=== PATIENT | male | born 1955 | race Caucasian/White ===

== ENCOUNTER 2016-11-14 07:11 | Day surgery (SDC) | payer OTHER, MEDICARE ==
[~2016-11-14] VITALS: Ht 172.7 cm; Wt 89.8 kg
--- NOTE | ~2016-11-14 | S ---
[facility] [place] [address] SURGICAL PATH RPT PROCEDURE Name: MARY GALICIA Room #: [place] [facility] [place].#: [id number] Admission: 11/14/16 Date of : 55 Discharge: 11/14/16 Report #: [id number] Path Case #: [id number] PATHOLOGY REPORT COLLECTION DATE: 11/14/2016 RECEIVED DATE: 11/15/2016 SUBMITTING PHYS: Dr. Daquan Pena OTHER PHYS: Dr. Yogi Herrera SPECIMEN(S) RECEIVED: A.Right eye and glaucoma implants * * * * * * * * * * * * FINAL DIAGNOSIS: "Right eye and glaucoma implants", enucleation and removal: - Cornea, sclera, iris, retina and optic nerve with atrophy, extensive fibrosis, reactive changes and focal metaplastic bone formation consistent with blind painful eye. - Foreign body consistent with glaucoma implant (gross examination only). (CLW:[place]; 11/16/2016) PATHOLOGIST: Cyndi Solomon M.D. REPORT ELECTRONICALLY SIGNED BY: Cyndi Solomon M.D. DATE/TIME: 11/16/2016 15:59 * * * * * * * * * * * * GROSS PATHOLOGY: The specimen is received in formalin labeled "Mary Galicia, right eye, suture at lateral rectus and glaucoma implant". Received is a partially collapsed enucleation specimen measuring 2.4 x 2.3 x 2.3 cm in greatest dimensions with a suture designating the lateral rectus aspect. There is an attached segment of white flexible possible plastic measuring 3.2 x 1.4 cm which is located adjacent to the lateral rectus. The optic nerve measures 0.5 cm in diameter by 0.7 cm in length. The cornea is opaque and cloudy in appearance measuring 1.2 x 1.0 cm. Sectioning reveals a segment of yellow plastic in the lens area measuring 0.6 x 0.6 x 0.1 cm. The vitreous chamber is filled with pink-hines to white-hines material. The choroid layer is pale hines and smooth in appearance. A full-thickness cross-section through the optic nerve and lateral rectus aspect is submitted in cassette A1. A gross photograph is taken of the possible attached plastic material. ([facility]; 11/15/2016) [address] [address] SURGICAL PATH RPT PROCEDURE Name: MARY GALICIA Room #: [facility].#: [id number] Admission: 11/14/16 Date of : 55 Discharge: 11/14/16 Report #: [id number] Path Case #: [id number] CLINICAL HISTORY: Blind painful eye INITIAL CPT CODE(S): A; 32962, 00500 Professional services performed by [facility] at [address] , [place] [address] Technical services performed by [facility] at [address] [place] [address], [facility] [address] [address]. [facility] [place] [address] PHONE: [phone] DIRECTOR: Jhony Hurd M.D. * * * END OF REPORT * * *
--- NOTE | ~2016-11-14 | O ---
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 PROCEDURE: Enucleation of right eye with implantation of 18 mm Medpor sphere with muscles attached to implant, removal of orbital implant, conjunctivoplasty, temporary tarsorrhaphy. SURGEON: Daquan Pena MD MEDICAL SUPERVISOR: None. ANESTHESIA: General. COMPLICATIONS: None. INDICATIONS FOR SURGERY: This pleasant 61-year-old gentleman has a blind, painful right eye as a complication of diabetes with concomitant prior uncontrolled glaucoma. He presents today with an irreversibly blinded right eye with an orbital prosthesis having previously been placed to treat his glaucoma. He has extensive conjunctival scarring from prior intervention. He presents today for removal of the right eye, removal of the orbital implant, implantation of an orbital implant with muscles attached to the sphere, conjunctivoplasty, temporary tarsorrhaphy. Informed consent was obtained to include, but not limited to the potential risks for bleeding, infection, and the need for further surgery or treatment. DESCRIPTION OF PROCEDURE: The patient was taken to the operating room where general anesthesia was administered. The right socket was then anesthetized with Xylocaine with epinephrine mixed with equal parts of Marcaine and Wydase. The patient received antiemetics at the beginning of the case. He was subsequently prepped and draped in the usual sterile fashion. The left eye was protected with a moistened sponge while a lid speculum was [address] [address] OPERATIVE REPORT Name: MARY GALICIA Room #: 150-7 [facility]#: [id number] Admission: 11/14/16 Attend Phys: Daquan Pena MD Discharge: Date of : 55 Report #: [id number] placed on the right side. A 360-degree conjunctival peritomy was undertaken as best possible. The initial peritomy was able to be accomplished relatively in a straightforward manner, but the extension through tenons was challenging throughout the entire dissection. The oblique quadrants were then bluntly dissected as best possible. The medial rectus muscle was then grasped with a muscle hook and cleaned of its surrounding connective tissue. A double arm 5-0 Vicryl suture was then passed through the insertion of the medial rectus muscle when it was subsequently amputated from the globe. The locking bites on the margins of the muscle allowed the muscle to be retracted out of the field with a ____. Attention was then turned to the inferior rectus muscle where the same procedure was subsequently undertaken with isolation of that muscle and its removal off of the globe. It was at this point in time that the previous glaucoma implant was identified. It was dissected out as best possible as the remainder of the dissection was undertaken heading around towards the lateral rectus muscle. Sharp dissection was used throughout this as it was densely adherent to the globe. The lateral rectus muscle then had locking bites passed through its margin with a 5-0 Vicryl suture and it was transected from the globe. It was then dissected back into the orbital apex. The superior rectus muscle was then isolated in the underlying orbital implant, which appeared to be a Baerveldt type device was dissected free. The orbital implant was then removed. A 4-0 silk suture was placed through the insertion of the lateral rectus muscle and used for traction. The oblique muscles were cut and allowed to retract back into the orbit. The optic nerve was then clamped for 2 minutes. That clamp was released and it was additionally clamped for additional 3 minutes. The optic nerve was then clamped for final 3 minutes. The optic nerve was then cut and removed. An 18-mm sizing sphere appeared to fit in the socket relatively well, so an 18-mm Medpor sphere was then vacuum aspirated in antibiotic irrigation solution and subsequently reposited behind posterior tenons with the help of an easy glide introducer. Posterior tenons were then closed over the sphere with 5-0 Vicryl sutures. The medial and lateral rectus muscles were drawn to each other and closed with interrupted 5-0 Vicryl sutures. The superior and inferior rectus muscles were secured to the medial and lateral rectus muscles with 5-0 Vicryl sutures. The conjunctiva was then extensively undermined to allow conjunctivoplasty repair to be accomplished. The conjunctival advancement flap was then secured with interrupted 5-0 Vicryl sutures deep and then 6-0 Vicryl sutures more superficially. ____ was basically closed as a unit because of the scarring. A medium conformer was then placed in the socket followed by erythromycin ointment. A temporary tarsorrhaphy was then fashioned from a short section of [facility] [address] [place] [address] OPERATIVE REPORT Name: MARY GALICIA Room #: 150-7 [facility]#: [id number] Admission: 11/14/16 Attend Phys: Daquan Pena MD Discharge: Date of : 55 Report #: [id number] IV tubing and a double arm pass from a 5-0 nylon suture. A Telfa pad was then placed on the eye followed by 2 eye pads, which were held in place with silk tape and Mastisol. Prior to securing the dressing, an additional aliquot of the same anesthetic mixture used at the beginning of the procedure was placed in the right orbit. The patient was subsequently transported to the recovery area having tolerated the procedure well with no anesthetic or operative complications being noted. By: [id number] Daquan Pena MD /nt
[~2016-11-14 07:11] MED LIST: ALPHAGAN P5 ML OPHTHALMIC; ASPIRIN81 M2 PO; ATORVASTATIN CA80 MG PO; BILBERRY100 MG PO; CANDESARTAN CIL32 MG PO; CARTRIDGE STAM1 EACH SUBQ; CENTRUM SILVER1 EAC2 PO; CIALIS5 MG PO; GINKGO BILOBA500 MG PO; GLUCOSAMINE &1 EAC1 PO; HAIR, SKIN & N1 EAC3 PO; LASIX 40 MG TAB40 M2 PO; LUTEIN40 MG PO; NAPROSYN500 MG PO; SYMBICORT160 MCG/4. INH; TIMOLOL MA0.25 %/52 OPHTHALMIC; TRAMADOL 50 MG50 MG PO; TRAZODONE 150150 M1 PO; VENTOLIN HFA 1818 GM INH; VITAMIN A10000 UNI3 PO; VITAMIN C500 M1 PO; ZETIA10 MG PO; ZINC50 MG PO; [UNRECOGNIZED DRUG - OTHER] PO
[2016-11-14 12:00] VITALS: BP 130/66
== END 2016-11-14 16:15 | disposition home or self-care (01) ==
LOC: OR 07:11 → TBA 07:11 → OR 09:55
DX: H11.241 Scarring of conjunctiva, right eye (principal); T85.398A Other mechanical complication of other ocular prosthetic devices, implants and grafts, initial encounter; H54.41 Blindness, right eye, normal vision left eye; H40.89 Other specified glaucoma; E11.39 Type 2 diabetes mellitus with other diabetic ophthalmic complication; I10 Essential (primary) hypertension; J43.9 Emphysema, unspecified; G47.33 Obstructive sleep apnea (adult) (pediatric); E78.5 Hyperlipidemia, unspecified; Z85.818 Personal history of malignant neoplasm of other sites of lip, oral cavity, and pharynx; Z87.891 Personal history of nicotine dependence; Z98.890 Other specified postprocedural states; Z79.4 Long term (current) use of insulin; Z79.899 Other long term (current) drug therapy; Z79.82 Long term (current) use of aspirin
CPT/HCPCS: 50010; 50101; 50386; 50398; 51636; 51854; 53500; 56527; 56528; 56531; 62110; 62900; 64037; 70005